=== PATIENT | female | born 1955 | race African-American/Black ===

== ENCOUNTER 2020-05-04 08:02 | Outpatient (CLI) | payer MEDICARE, MEDICAID, SELFPAY ==
--- NOTE | ~2020-05-04 | MM_ITS ---
EXAMINATION: MM screening jaylyn BI w darrel HISTORY: Screening mammogram TECHNIQUE: Craniocaudal and mediolateral oblique 3-D tomosynthesis images were obtained and synthetic 2-D images were generated. CAD analysis was submitted and interpreted. COMPARISON: 07/13/2017 BREAST PARENCHYMAL COMPOSITION: There are scattered areas of fibroglandular density. FINDINGS: There is unchanged architectural distortion in the upper outer left breast at the site of p rior excisional biopsy. There is no evidence of suspicious mass, calcification, or architectural dist ortion to suggest malignancy in either breast. There has been no suspicious interval change. IMPRESSION: 1. No mammographic evidence of malignancy. 2. Recommend routine screening mammography in one year. BI-RADS Category 2: Benign finding(s). Reviewed, dictated and finalized at location A.
== END 2020-05-04 08:03 | disposition home or self-care (01) ==
PROVIDERS: PCP Internal Medicine; Visit Provider Internal Medicine
DX: Z12.31 Encounter for screening mammogram for malignant neoplasm of breast (principal)
CPT/HCPCS: 77063; 77067

== ENCOUNTER → 2020-07-28 07:43 | Outpatient (CLI) | payer MEDICARE, MEDICAID, SELFPAY ==
--- NOTE | ~2020-07-28 | MR_ITS ---
EXAMINATION: MR knee LT wo con DATE: 07/28/2020 08:31 INDICATION: Left knee osteoarthritis. TECHNIQUE: Magnetic resonance imaging (MRI) of the left knee was performed without intravenous contra st. Sequences included axial PD-weighted FS FSE, coronal PD-weighted FSE and PD-weighted FS FSE, sagi ttal PD-weighted FSE, and sagittal T2-weighted FS FSE. COMPARISON: None. FINDINGS: Medial compartment: There is an undersurface horizontal tear of posterior horn of medial meniscus. There is shallow parti al-thickness cartilage loss of tibial condyle, worst at the central and medial articular surface. The re is deep partial thickness cartilage loss of femoral condyle involving the central articular surfac e. There is extensive shallow partial-thickness cartilage loss of femoral condyle. Marginal osteophyt es are noted. Lateral compartment: Lateral meniscus is normal. There is cartilage surface regularity of tibial condyle. There is shallow partial-thickness cartilage loss of femoral condyle. There is subchondral edema-like marrow signal i ntensity of femoral condyle medially. Osteophytes are noted. Patellofemoral compartment: There is full-thickness cartilage loss of patellar medial and lateral facets. There is partial-thickn ess cartilage loss of trochlea, deep at the central trochlea. Osteophytes are noted. Ligaments and tendons: The anterior and posterior cruciate ligaments are normal. Medial collateral ligament and lateral bing ateral ligament complex are intact. There is mild patellar tendinopathy. Fluid: There is a small knee joint effusion. There is a small Voss's cyst. There is mild prepatellar and maya perficial infrapatellar bursitis. IMPRESSION: 1. Severe chondrosis of patellofemoral compartment, moderate chondrosis of medial compartment, and mi ld chondrosis of lateral compartment. 2. Tear of medial meniscus. 3. Small knee joint effusion. 4. Small Voss's cyst. Reviewed, dictated and finalized at location A. IMPRESSION: 1. Severe chondrosis of patellofemoral compartment, moderate chondrosis of medi al compartment, and mild chondrosis of lateral compartment. 2. Tear of medial meniscus. 3. Small knee joint effusion. 4. Small Voss's cyst.
== END ==
PROVIDERS: PCP Internal Medicine; Visit Provider Internal Medicine
DX: M17.12 Unilateral primary osteoarthritis, left knee (principal); M71.22 Synovial cyst of popliteal space [Baker], left knee; M25.462 Effusion, left knee
CPT/HCPCS: 73721

== ENCOUNTER → 2020-08-03 08:52 | Outpatient (CLI) | payer MEDICARE, MEDICAID, SELFPAY ==
--- NOTE | ~2020-08-03 | CT_ITS ---
EXAMINATION: CT lung screening EXAM DATE: 08/03/2020 09:03 INDICATION: Personal history of nicotine dependence. TECHNIQUE: Spiral low dose CT of the chest without contrast. Axial, coronal and sagittal images were reviewed. The dose-length product (DLP) for this examination was 210.84 mGy-cm. The exposure was t ailored according to patient size (auto mA exposure control), and iterative reconstruction (ASIR) was used as additional dose reduction technique. Comparison is made to prior examination from 03/27/2014. FINDINGS: There is moderate emphysema. There is 2 mm right upper lobe nodule, axial image 48. Trach eobronchial tree is patent. There is no mediastinal, hilar or axillary lymphadenopathy. There are no pleural or pericardial effusions. There is no pneumothorax. Heart normal in size. There is mild to moderate coronary arterial calcification, arterial sclerosis. There is atrial septal closure device. There is small to moderate sliding gastroesophageal hiatal hernia. Moderate sized bridging endplate osteophytes, diffuse idiopathic skeletal left breast stenosis. Patient has diffuse idiopathi c skeletal hyperostosis (DISH). IMPRESSION: Lung-RADS category 2, benign appearance or behavior (<1% chance of malignancy); recommend continued LDCT screening in 1 year. Reviewed, dictated and finalized at location B.
== END ==
PROVIDERS: PCP Internal Medicine; Visit Provider Internal Medicine
DX: Z12.2 Encounter for screening for malignant neoplasm of respiratory organs (principal); Z87.891 Personal history of nicotine dependence
CPT/HCPCS: G0297

== ENCOUNTER 2020-11-17 15:33 | Outpatient (CLI) | payer MEDICARE, MEDICAID, SELFPAY ==
--- NOTE | ~2020-11-17 | XR_ITS ---
EXAMINATION: XR chest 2V DATE: 11/17/2020 15:59 INDICATION: Cough and weakness and dizziness. TECHNIQUE: Frontal and lateral views of the chest were obtained. COMPARISON: Chest 2 views 07/13/2018, chest CT 08/03/2020 FINDINGS: There are lucencies in the upper lungs, consistent with emphysema. There are patchy airspac e opacities in the mid and lower lung zones. No pleural effusion or pneumothorax. The heart size is n ormal. There is an interatrial closure device in the heart. There is a moderate-sized hiatal hernia. IMPRESSION: 1. Patchy airspace opacities in the mid and lower lung zones, consistent with pneumonia. Consider may ting for COVID-19. 2. Emphysema. 3. Moderate-sized hiatal hernia. Reviewed, dictated and finalized at location B. 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 Patchy airspace opacities in the mid and lower lung zones, consistent with p neumonia. Consider testing for COVID-19. 2. Emphysema. 3. Moderate-sized hiatal hernia.
== END 2020-11-17 15:34 | disposition home or self-care (01) ==
LOC: ANHIMG 15:40
PROVIDERS: PCP Internal Medicine; Visit Provider Internal Medicine
DX: R05 Cough (principal); J43.9 Emphysema, unspecified; K44.9 Diaphragmatic hernia without obstruction or gangrene; R91.8 Other nonspecific abnormal finding of lung field
CPT/HCPCS: 71046

== ENCOUNTER 2021-02-13 12:45 | Outpatient (CLI) | payer MEDICARE, MEDICAID, SELFPAY ==
--- NOTE | ~2021-02-13 | XR_ITS ---
XR chest 2V DATE: 02/13/2021 13:04 INDICATION: Shortness of breath. Pneumonia. Covid. TECHNIQUE: PA and lateral views COMPARISON: 11/17/2020 2 view chest FINDINGS: Normal heart size. Interatrial closure device is again noted. There is aortic ectasia and u nfolding. No hilar or mediastinal enlargement. No pulmonary infiltrate or consolidation, pleural effusion or pulmonary vascular congestion or pneumo thorax. Degenerative spurring of the thoracic spine. IMPRESSION: Resolution of bilateral mid and lower lung infiltrates since 11/17/2020 Reviewed, dictated and finalized at location A. IMPRESSION: Resolution of bilateral mid and lower lung infiltrates since 021
== END 2021-02-13 12:46 | disposition home or self-care (01) ==
LOC: ANHIMG 12:51
PROVIDERS: PCP Internal Medicine; Visit Provider Internal Medicine
DX: J18.9 Pneumonia, unspecified organism (principal); R91.8 Other nonspecific abnormal finding of lung field
CPT/HCPCS: 71046

== ENCOUNTER 2022-01-13 12:01 | Outpatient (CLI) | payer MEDICARE, MEDICAID, SELFPAY ==
--- NOTE | ~2022-01-13 | MR_ITS ---
EXAMINATION: MR thoracic spine wo con DATE: 01/13/2022 13:05 INDICATION: Abnormal finding on diagnostic imaging. Mid back pain. TECHNIQUE: Magnetic resonance imaging (MRI) of the thoracic spine was performed without intravenous c ontrast. Sagittal localizer T1-weighted FSE of the cervicothoracic spine was obtained. Thoracic spine sequences included sagittal T2-weighted FSE, sagittal T1-weighted SE, Sagittal T2-weighted FS FSE, a nd axial T2-weighted FSE. 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 Normal alignment of the thoracic spine. Vertebral body heights are normal. Normal marrow signal. There are bridging osteo phytes at multiple levels throughout the thoracic spine consistent with diffuse idiopathic skeletal h yperostosis (DISH). Anterior endplate osteophytes with relatively preserved disc space at C5-C6 and C 6-C7. Mild disc height loss at C7-T1, T10-T11 and T12-L1. Mild disc bulge at T11-T12. No central diane l stenosis. There is multilevel mild to moderate thoracic facet osteoarthritis most prominent in the upper thoracic spine. There is mild neural foraminal stenosis bilaterally at T1-T2 and on the left at T10-T11. There is normal spinal cord signal. The conus terminates at L1. Small amount of subcutaneou s edema posterior to the thoracolumbar junction. Paravertebral soft tissues are otherwise unremarkabl e. IMPRESSION: 1. Mild thoracic spondylosis. Reviewed, dictated and finalized at location A.
== END 2022-01-13 12:02 | disposition home or self-care (01) ==
PROVIDERS: PCP Internal Medicine; Visit Provider Internal Medicine
DX: M47.894 Other spondylosis, thoracic region (principal)
CPT/HCPCS: 72146

== ENCOUNTER 2023-08-03 11:40 | Outpatient (CLI) | payer MEDICARE, MEDICAID, SELFPAY ==
--- NOTE | 2023-08-03 13:12 | ECG_ITS ---
Measurements Intervals [place] Rate: 69 P: 56 MT: 155 QRS: 41 QRSD: 98 T: 36 QT: 396 QTc: 425 Interpretive Statements SINUS RHYTHM NO PREVIOUS ECG AVAILABLE FOR COMPARISON Electronically Signed On 08-04-2023 14:08:27 CDT by Bella Zuleta M.D.
[2023-08-03 13:49] LABS: Basophils Percent Auto 0.5 % (0.2-1.2); Eosinophils Absolute Auto 0.2 K/mm3 (0-0.3); Eosinophils Percent Auto 2.7 % (0-4.4); Hematocrit 43.7 % (37.0-47.0); Hemoglobin 13.5 g/dL (12.0-15.0); Immature Granulocyte Absolute 0.04 K/mm3 (0.00-0.031); Immature Granulocyte Percent A 0.5 % (0-0.5); Lymphocytes Percent Auto 26.1 % (18.3-44.2); Mean Corpuscular HGB Conc 30.9 g/dl (32-36); Mean Corpuscular Hemoglobin 25.8 pg (26-34); Mean Corpuscular Volume 83.6 fl (80-100); Mean Platelet Volume 9.7 fl (7.4-10.4); Monocytes Absolute Auto 0.8 K/mm3 (0.1-0.6); Monocytes Percent Auto 10.3 % (2.6-8.5); Neutrophils Absolute Auto 4.6 K/mm3 (1.3-6.7); Neutrophils Percent Auto 59.9 % (45.5-73.1); Platelet Count Result 371 k/mm3 (150-375); Red Blood Count 5.23 M/mm3 (4.2-5.4); Red Cell Distribution Width 16.1 % (11.5-14.5); White Blood Count 7.7 K/mm3 (4.5-10.0)
[2023-08-03 13:57] LABS: Urine Cotinine NEGATIVE
[2023-08-03 13:58] LABS: Albumin Level 4.1 g/dL (3.5-5.1); Anion Gap 5 mmol/L (8-16); Blood Urea Nitrogen 6 mg/dL (7-17); Calcium 9.1 mg/dL (8.4-10.2); Carbon Dioxide 33 mmol/L (22-30); Chloride 101 mmol/L (98-107); Estimated Glomerular Filt Rate > 60; Glucose 100 mg/dL (65-110); Potassium 3.7 mmol/L (3.4-5.0); Sodium 139 mmol/L (137-145)
[2023-08-03 14:02] LABS: Hemoglobin A1C 5.9 % (<5.7)
== END 2023-08-03 11:41 | disposition home or self-care (01) ==
LOC: ANHSURGERY 11:52
PROVIDERS: PCP Internal Medicine; Visit Provider Orthopaedic Surgery
DX: M17.11 Unilateral primary osteoarthritis, right knee (principal); Z01.818 Encounter for other preprocedural examination
CPT/HCPCS: 80048; 80307; 82040; 83036; 85025; 87081; 93005

== ENCOUNTER 2023-08-23 01:44 | Day surgery (SDC) | payer MEDICARE, MEDICAID, SELFPAY ==
[2023-08-03 12:00] VITALS: BMI 38.3
--- NOTE | 2023-08-03 12:22 | PC.NURSE ---
Report to the Outpatient Waiting Room, entrance under the green pavilion located off [facility], at time _1000 on date _08/23/23 . Planned Procedure [id number]: . Time changes happen often and if your time is changed the preop area will call you the afternoon before. - You and your visitor will be asked to self-screen and do not enter if you have any COVID symptoms. - A mask is optional within the hospital at this time. Patients may have clear liquids (water, carbonated beverages, clear teas, apple juice) until 3 hours prior to surgery with a maximum of 20 ounces. - No food from midnight until time of surgery - Infants may have breast milk until 4 hours before surgery, formula 6 hours prior to surgery. - Children will be allowed to drink immediately following surgery. If applicable, please bring a bottle or sippy cup to assist with drinking. Juice, water, soda, and popsicles are readily available. For infants on formula, please bring formula the day of surgery. Pacifiers are allowed. Take the following medications with a SIP of water the morning of surgery: __INHALER, DILTIAZEM DO NOT STOP ANY OF YOUR OTHER PRESCRIPTION MEDICATIONS PRIOR TO SURGERY ?EXCEPT THE FOLLOWING Medications to discontinue per physician __PT STATES HOLD _ASPIRIN _DAY OF SURGERY__ONLY Date to take last dose Please no make-up, nail croatian, hairspray, perfume, deodorant, or body powder the day of surgery. No jewelry (including any body piercings) or valuables the day of surgery, leave them at home. Please take a shower or bath the night before, or the morning of, surgery with an antibacterial soap. Wear comfortable, loose fitting clothing. Children are encouraged to wear pajamas. - Jewelry must be removed prior to entering the operating room. Rings and piercings that are not removed may be cut off. - The hospital will not accept responsibility for valuables. - Please leave all valuables, including medications, at home the day of surgery. If you are going home after surgery, a licensed local hazmat driver must drive you home. - NO public transportation without another adult if you receive anesthesia. - We recommend that an adult stay with you for 24 hours following discharge. - We also recommend that you do not drive, make important decision, drink alcoholic beverages, or take any drugs that were not prescribed by your health care provider for at least 24 hours after your discharge time. For Pediatric surgeries, we recommend two adults accompany the child home. Follow any additional instructions given to you from your surgeon. If you or anyone in your household have experienced Covid symptoms in the past week, please notify your surgeon or the nurse liaison at the phone number below for possible testing. VERBAL AND WRITTEN instructions given to _PATIENT and asked if any additional questions and then verbalized understanding. Patient advised to call surgeon office or pre surgery nurse liaison [phone] if any additional questions.
[2023-08-03 13:03] VITALS: BP 156/92; PULSE 79; RESP 18; TEMP 36.7; O2SAT 98
--- NOTE | 2023-08-21 12:38 | PM.IMHP ---
H&P: HPI History of Present Illness Date/Time: 08/21/23 12:38 Chief Complaint: DJD right knee Narrative: 68-year-old female patient Dr. Paul who presents today for a right total arthroplasty. Patient having symptoms in both her knees right greater than left for several years. She has had cortisone injections as well as viscosupplementation injections in the knees. Her last cortisone injection was March 30 of this year. She got minimal improvement from the injection. She has severe medial compartment osteoarthritis in both knees. Patient has reached a point where she feels she would rather proceed with total knee arthroplasty rather than continue nonsurgical treatment. Review of Systems Review of Systems: All systems reviewed & are unremarkable except as noted in HPI and below PMFSH Social History Social History Smoking packs per day: 0.5 Smoking cigarettes per day: 10.0 Years smoked: 40 Smoking pack-years: 20.00 Smoking status: Former smoker Tobacco type: cigarettes Smoking end date: 10/30/10 Additional smoking assessment comments: DENIES ANY FORM OF TOBACCO USE Living arrangements: alone Spiritual care concerns: No Meds Home Medications and Allergies Home Medications Medication Instructions Recorded Confirmed Type albuterol sulfate 90 mcg/actuation 2 puff inhalation PRN PRN 08/03/23 08/03/23 History aerosol inhaler Shortness Of Breath aspirin 81 mg tablet,delayed 81 mg PO DAILY 08/03/23 08/03/23 History release (Adult Low Dose Aspirin) budesonide 160 mcg-glycopyr 9 2 inh inhalation BID 08/03/23 08/03/23 History mcg-formot 4.8 mcg/actuation HFA inhaler (Breztri Aerosphere) diltiazem HCl 120 mg tablet 120 mg PO DAILY 08/03/23 08/03/23 History lidocaine 1.8 % topical patch 1 patch topical PRN PRN Pain 08/03/23 08/03/23 History pantoprazole 40 mg tablet,delayed 40 mg PO DAILY 08/03/23 08/03/23 History release Allergies Allergy/AdvReac Type Severity Reaction Status Date / Time codeine Allergy Mild Hives Verified 08/03/23 12:02 meperidine Allergy Unknown VOMITING Verified 08/03/23 12:02 Penicillins Allergy Unknown Hives Verified 08/03/23 12:02 Sulfa (Sulfonamide Allergy Unknown RASH Verified 08/03/23 12:02 Antibiotics) aspirin AdvReac Unknown Unknown Verified 08/03/23 12:02 Contrast Media Allergy Severe Anaphylactic Uncoded 08/03/23 12:02 Shock Exam Narrative: 68-year-old female alert. She is 5 ft 4 and 232 lb her BMI is 39.8. She walks with a mild limp bilaterally. Right knee range of motion is from 3-90 degrees with significant posterior and medial knee pain at full flexion. Moderate tenderness over the medial joint line. No definite effusion. Normal stability in the knee. Hip range of motion is full without discomfort, negative Stinchfield maneuver. 2+ posterior artery pulse palpable no dorsalis pedis pulse. There is no edema in lower extremity. Normal sensation light touch to lower extremities Resp: Auscultation: clear to auscultation bilaterally Cardio: Rate: regular rate Rhythm: regular rhythm Assessment and Plan Assessment and plan (1) Right knee DJD: Code(s): M17.11 - Unilateral primary osteoarthritis, right knee Status: Acute Plan 68-year-old female who has severe medial compartment osteoarthritis both knees with the right more symptomatic than left at this point. She feels she is ready to proceed with surgery rather than continue with nonsurgical treatment. Surgical procedure as well as the risks and complications were discussed in detail and all questions were answered and we will proceed. Patient will continue with her baby aspirin through the time of surgery due to her history of heart stent. She will avoid any ibuprofen products 1 week prior to surgery. Patient will see her primary care doctor for medical clearance. She has seen cardiology and has been cleared. Patient did have a stress test done in [place]
--- NOTE | 2023-08-22 13:00 | WPDANESEPPF ---
Anes - Initial Pre Proc Eval Procedure: Operation Date: 08/23/23 12:00 Proposed Procedures p Right Total Knee Arthroplasty - Jero Seay MD Date/Time: 08/22/23 13:00 Surgeon: Jero Seay MD Pre Op Diagnosis: O A Rt Knee Patient Data Age: 68 Gender: F Height: 1.65 m Weight: 104.6 kg Last Vital Signs Temp 36.7 C 08/03/23 13:03 Pulse 79 08/03/23 13:03 Resp 18 08/03/23 13:03 BP 156/92 H 08/03/23 13:03 Pulse Ox 98 08/03/23 13:03 O2 Del Method Room Air 08/03/23 13:03 Allergies Allergy/AdvReac Type Severity Reaction Status Date / Time codeine Allergy Mild Hives Verified 08/23/23 10:53 meperidine Allergy Unknown VOMITING Verified 08/23/23 10:53 Penicillins Allergy Unknown Hives Verified 08/23/23 10:53 Sulfa (Sulfonamide Allergy Unknown RASH Verified 08/23/23 10:53 Antibiotics) aspirin AdvReac Unknown Unknown Verified 08/23/23 10:53 Contrast Media Allergy Severe Anaphylactic Uncoded 08/23/23 10:53 Shock Home Medications Medication Instructions Recorded Confirmed Type albuterol sulfate 90 mcg/actuation 2 puff inhalation PRN PRN 08/03/23 08/03/23 History aerosol inhaler Shortness Of Breath aspirin 81 mg tablet,delayed 81 mg PO DAILY 08/03/23 08/03/23 History release (Adult Low Dose Aspirin) budesonide 160 mcg-glycopyr 9 2 inh inhalation BID 08/03/23 08/03/23 History mcg-formot 4.8 mcg/actuation HFA inhaler (Breztri Aerosphere) diltiazem HCl 120 mg tablet 120 mg PO DAILY 08/03/23 08/03/23 History lidocaine 1.8 % topical patch 1 patch topical PRN PRN Pain 08/03/23 08/03/23 History pantoprazole 40 mg tablet,delayed 40 mg PO DAILY 08/03/23 08/03/23 History release Patient hx anesthesia problems: none Family hx anesthesia problems: none Results Review: All pre-operative results and documents have been reviewed as part of the pre-operative evaluation. [facility] Past Medical History Medical History (Updated 08/22/23 @ 13:02 by Corbin Reed DO) CVA (cerebral vascular accident) 2017 , some memory loss Emphysema lung Leukemia at 6 months of age Polycythemia vera Surgical History Surgical History (Updated 08/22/23 @ 13:02 by Corbin Reed DO) History of coronary artery stent placement x1 History of hysterectomy Social History Social History Smoking packs per day: 0.5 Smoking cigarettes per day: 10.0 Years smoked: 40 Smoking pack-years: 20.00 Smoking status: Former smoker Tobacco type: cigarettes Smoking end date: 10/30/10 Additional smoking assessment comments: DENIES ANY FORM OF TOBACCO USE Living arrangements: alone Spiritual care concerns: No Anes - Eval Final PreProcedure Day of Procedure 08/22/23 13:00 Patient weight: obese Heart: regular rate and rhythm Lungs: clear to auscultation Airway: Mallampati scale class II Neurological: alert and oriented Last oral intake: >/= 8 hours ASA classification: III Emergent: no Anesthetic plan: proceed Anesthesia type and monitoring: general LMA and standard monitoring Results Review: All pre-operative results and documents have been reviewed as part of the pre-operative evaluation. Informed Consent: The patient's anesthetic plan and its attendant risks and benefits were discussed with the patient/family/POA. Questions were solicited and answers provided to the satisfaction of the patient/family/POA.
[2023-08-23] VITALS (14 sets, daily range): BP systolic 112–161; BP diastolic 69–94; PULSE 68–88; RESP 12–18; TEMP 35.7–36.4; O2SAT 96–100
--- NOTE | ~2023-08-23 | XR_ITS ---
EXAMINATION: [id number] DATE: 08/23/2023 16:16 CDT INDICATION: Right total knee arthroplasty TECHNIQUE: 2 views right knee FINDINGS: There is a right total knee arthroplasty in expected position. Subcutaneous gas with fluid and air in the joint are consistent with recent surgery. No evidence of periprosthetic fracture. IMPRESSION: 1. Recent right total knee arthroplasty. Reviewed, dictated and finalized at location B.
[2023-08-23] MEDS: LACTATED RINGERS 1,000 ML 30 ML IV CONT ×2 (10:50→15:42)
[2023-08-23] MEDS: ACETAMINOPHEN 500 MG TABLET 1000 MG PO ×2 (10:50→18:22)
[2023-08-23] MEDS: TRANEXAMIC ACID 1,000MG/ISO100 1,000 MG/100 ML BAG 200 MG IVPB (11:30)
--- NOTE | 2023-08-23 12:03 | WPDHPUPDATE1 ---
History and Physical Update Update Date/Time: 08/23/23 12:03 History and Physical has been reviewed, including an updated exam of the patient. There are NO changes in the patient's condition. Risks, benefits, and alternatives have been discussed and questions answered. Patient agrees to proceed with procedure.
--- NOTE | 2023-08-23 12:05 | WPDHPUPDATE1 ---
History and Physical Update Update Date/Time: 08/23/23 12:05 History and Physical has been reviewed, including an updated exam of the patient. There are NO changes in the patient's condition. Risks, benefits, and alternatives have been discussed and questions answered. Patient agrees to proceed with procedure. Also, patient has OA in left knee and would like a shot in left knee today.
[2023-08-23] MEDS: ceFAZolin 2 GM/D5W 50 ML 2 GM/50 ML BAG IVPB (12:19)
[2023-08-23] MEDS: ceFAZolin SODIUM 1 GM VIAL 3 GM (13:10)
[2023-08-23] MEDS: GENTAMICIN BONE CEMENT REFOBACIN 1 EACH TOPICAL (13:13)
[2023-08-23] MEDS: methylPREDNISolone ACETATE 80 MG/ML VIAL IM (13:15)
[2023-08-23] MEDS: ceFAZolin SODIUM 1 GM VIAL 2 GM IV PUSH (14:32)
[2023-08-23] MEDS: TRANEXAMIC ACID 1,000 MG/10 ML AMPUL 1000 MG IV PUSH (14:35)
--- NOTE | 2023-08-23 15:26 | W.PM.PROC2 ---
Procedure Note - Detailed Date of Procedure 08/23/23 Pre-op Diagnosis O A Rt Knee and Lt knee, obesity BMI 39. Post-op Diagnosis Same Procedure Performed Right total knee arthroplasty, cortisone shot left knee Surgeon Jero Seay MD Anesthesia General Description of Procedure There was extra difficulty with the procedure because of her obesity which added approximately 30 minutes of surgical time to the procedure. Patient brought the operating room and general anesthesia was administered. She received 2 g of Ancef weight based vancomycin 1 g tranexamic acid preoperatively. The left knee was prepped with ChloraPrep and 80 mg of Depo-Medrol and 3 cc 1% lidocaine injected. The right leg was prepped draped usual fashion. Limb was exsanguinated tourniquet elevated to 300 mmHg. A 7 in longitudinal midline incision was used and a standard parapatellar arthrotomy lysed. Infrapatellar and suprapatellar fat pads were partially excised a quadriceps synovectomy carried out. The patella had chondromalacia central in the medial facet no exposed bone or bony deformity lateral sec cartilage was normal. I felt this was appropriate for non resurfacing. A minor lateral facetectomy was performed. A guide sharon was inserted down the femoral canal after aspiration of canal contents using the 5 degree valgus cutting bushing 10 mm of bone removed the distal femur. The tibial plateau was cut using making a skim cut from [place] medial tibial plateau. This was made perpendicular to the axis of the tibia. This could remnants were excised the PCL recessed. Flexion gap measured 8 mm medially 13 mm laterally. We did not release the medial capsule from the tibia because she did not have a significant varus deformity. Careful removal of the small medial osteophyte on the anteromedial tibial was performed. Femoral sizing guide was applied the distal femur at 5? of external rotation and posterior referencing pinholes placed and we applied the size 65 femoral cutting block vanguard and AP and chamfer cuts were made in the size 65 fit nicely line to line medial to lateral and flush with the anterior cortex. We were a bit tight medially more than laterally in flexion. The knee was just short of extension. The tibia was sized to a size 71 and with the tibial tray in place I felt we were in just a touch of valgus and with the knee being tight in flexion, I elected to recut the tibial plateau removing about 2 mm of bone from the medial side 1 mm from the lateral side. We confirmed that the trial sat flush with no rocking. We punched in this position which fit line to line posterolateral to anteromedial at proper rotation and trialed with the 10 mm insert and this had appropriate stability in flexion extension and came out to full extension with negative bounce with 1-2 mm of both medial and lateral opening valgus and varus stress in full extension. Trial components removed and the trial femur placed in posterior femoral osteophyte removed the medial side. We did not perform a posterior capsular release. Lug holes were drilled femur. Step drill was used to make multiple perforations in the dense bone. Her bone quality was excellent. The bony surfaces were thoroughly irrigated and dried. Two batches of methylmethacrylate were mixed 1 the gentamicin powder the cement was medial applied the 71 tibia and then the 65 right cruciate retaining femoral component cement applied the tibia pressurized tibial component fully seated cement applied the femur the femoral component fully seated the knee brought into extension with an 11 mm 5 1 insert for pressurization tourniquet was released at 105 minutes. After cement hardening excess cement was sought for removed and hemostasis was confirmed. We trialed with the 10 insert and the same stability findings mentioned above. The 10 was placed without difficulty locked the locking pin range of motion stability reconfirmed there was centr
[2023-08-23] MEDS: fentaNYL CITRATE INJ (*CRX) 100 MCG/2 ML VIAL 25 MCG IV PUSH ×8 (15:50→16:20)
[2023-08-23] MEDS: HYDROmorphone HCL INJ (*CRX) 1 MG/ML SYR 0.5 MG IV PUSH (17:09)
--- NOTE | 2023-08-23 17:36 | ADMGEN ---
This patient, Alfreda Alan, was admitted to [facility] Surg Room 325-01. Patient/family oriented to hospital policies and general routines including ID bracelet, bed and alarms, visiting hours, pain management, procedures, bathroom and other care routines, personal items, smoking policy, room service/diet, and visiting hours. Information on how to activate the Rapid Response Team has been discussed. Patient/Family are encouraged to report perceived risks to care and to ask questions if they do not understand what they are told or what they should do.
[2023-08-23] MEDS: oxyCODONE HCL (*CRX) 5 MG TAB IR PO ×3 (18:22→22:27)
[2023-08-23] MEDS: SENNA/DOCUSATE SODIUM TABLET 2 TAB PO (18:22)
[2023-08-23] MEDS: ONDANSETRON INJ 4 MG/2 ML VIAL IV PUSH (18:39)
[2023-08-23] MEDS: ceFAZolin 1 GM/NS 50 ML 1 GM/50 ML BAG IVPB (20:34)
--- NOTE | 2023-08-23 20:49 | PM.IMCN ---
Assessment and Plan Assessment and plan (1) S/P total knee arthroplasty: Qualifiers: Laterality: right Qualified Code(s): Z96.651 - Presence of right artificial knee joint Code(s): Z96.659 - Presence of unspecified artificial knee joint Status: Acute (2) Coronary artery disease: Qualifiers: Coronary Disease-Associated Artery/Lesion type: unspecified vessel or lesion type [place] vs. transplanted heart: [place] heart Associated angina: unspecified whether angina present Qualified Code(s): I25.10 - Atherosclerotic heart disease of [place] coronary artery without angina pectoris Code(s): I25.10 - Atherosclerotic heart disease of [place] coronary artery without angina pectoris Status: Acute (3) GERD (gastroesophageal reflux disease): Qualifiers: Esophagitis presence: esophagitis presence not specified Qualified Code(s): K21.9 - Gastro-esophageal reflux disease without esophagitis Code(s): K21.9 - Gastro-esophageal reflux disease without esophagitis Status: Acute Plan Problem List 1. Status post total knee arthroplasty, right Ortho managing ambulate with assistance and up to chair cardiac monitoring use IS SCDs resume diet pain management zofran PRN for nausea monitor labs in AM - CBC and BMP Lidocaine patch p.r.n. 2. CAD Hold daily aspirin due to recent surgery, resume at orthopedic team's discretion Continue diltiazem Monitor heart rate and BP Tele monitoring 3. GERD Continue home pantoprazole Chronic Conditions -emphysema/COPD: Continue albuterol p.r.n. and Trelegy daily Diet: Heart healthy GI Prophylaxis: Home pantoprazole continued DVT Prophylaxis: SCDs, restart Eliquis on 08/24 Lines: pIV Code Status: DNR/DNI - per patient request on 08/23/2023 HPI Date of Consult Consult date: 08/24/23 Requesting Physician: Jero Seay MD Primary Care Provider: Vu Paul, Consult Narrative Reason for consult: Med Management Narrative: Alfreda Alan is a 68 year old female who presented here for a right knee total arthroplasty with past medical history of COPD, CAD with 1 stent placed, and GERD. Patient is currently postop day 1 from right total knee. Patient failed nonsurgical treatment: Cortisone injections and viscosupplementation injection. Patient has had bilateral knee pain for the last several years, however right has been worse than her left. Currently experiencing some postoperative pain. Brief episode of nausea after leaving PACU. Otherwise no complaints. No changes in sensation or strength in lower extremities. Review of Systems Review of Systems: All systems reviewed & are unremarkable except as noted in HPI and below PMFSH Past Medical History Medical History (Updated 08/24/23 @ 02:21 by Amanda Burris APRN) Coronary artery disease CVA (cerebral vascular accident) 2017 , some memory loss Emphysema lung GERD (gastroesophageal reflux disease) Leukemia at 6 months of age Polycythemia vera Surgical History Surgical History (Updated 08/24/23 @ 02:13 by Amanda Burris APRN) History of coronary artery stent placement x1 History of hysterectomy Family History Family History (Updated 08/24/23 @ 02:11 by Amanda Burris APRN) Sibling Ovarian cancer Mother Cancer Metastatic, unknown primary source Social History Social History (Updated 08/24/23 @ 02:11 by Amanda Burris APRN) Social History: Currently lives at home with her , son occasionally stays with them. Surrogate decision maker: Randal, Requesting to be made DNR/DNI -08/24/2023 Smoking packs per day: 0.5 Smoking cigarettes per day: 10.0 Years smoked: 40 Smoking pack-years: 20.00 Smoking status: Former smoker Additional smoking assessment comments: DENIES ANY FORM OF TOBACCO USE Alcohol intake: current Drinks per week: 3 Substance use: current S
[2023-08-23] MEDS: VANCOMYCIN 1,000 MG/NS 250 ML 1,000 MG/250 ML BAG 250 MG IVPB (21:56)
[2023-08-24] VITALS (7 sets, daily range): BP systolic 82–109; BP diastolic 39–62; PULSE 77–96; RESP 16–20; TEMP 35.8–36.2; O2SAT 94–98
[2023-08-24] MEDS: oxyCODONE HCL (*CRX) 5 MG TAB IR PO ×4 (00:50→08:59)
[2023-08-24] MEDS: ACETAMINOPHEN 500 MG TABLET 1000 MG PO ×3 (00:50→12:28)
[2023-08-24] MEDS: MORPHINE SULFATE (*CRX) 2 MG/ML INJ IV PUSH (02:01)
[2023-08-24] MEDS: ceFAZolin 1 GM/NS 50 ML 1 GM/50 ML BAG IVPB ×2 (04:07→12:31)
[2023-08-24 06:22] LABS: Basophils Percent Auto 0.1 % (0.2-1.2); Hematocrit 38.9 % (37.0-47.0); Hemoglobin 12.3 g/dL (12.0-15.0); Immature Granulocyte Absolute 0.19 K/mm3 (0.00-0.031); Immature Granulocyte Percent A 0.9 % (0-0.5); Lymphocytes Absolute Auto 1.38 K/mm3 (0.9-3.2); Lymphocytes Percent Auto 6.5 % (18.3-44.2); Mean Corpuscular HGB Conc 31.6 g/dl (32-36); Mean Corpuscular Hemoglobin 26.3 pg (26-34); Mean Corpuscular Volume 83.1 fl (80-100); Mean Platelet Volume 9.8 fl (7.4-10.4); Monocytes Absolute Auto 1.6 K/mm3 (0.1-0.6); Monocytes Percent Auto 7.3 % (2.6-8.5); Neutrophils Absolute Auto 18.2 K/mm3 (1.3-6.7); Neutrophils Percent Auto 85.2 % (45.5-73.1); Platelet Count Result 379 k/mm3 (150-375); Red Blood Count 4.68 M/mm3 (4.2-5.4); Red Cell Distribution Width 16.1 % (11.5-14.5); White Blood Count 21.4 K/mm3 (4.5-10.0)
[2023-08-24 06:34] LABS: Anion Gap 8 mmol/L (8-16); Blood Urea Nitrogen 7 mg/dL (7-17); Calcium 8.5 mg/dL (8.4-10.2); Carbon Dioxide 25 mmol/L (22-30); Chloride 101 mmol/L (98-107); Estimated CRCL calculation 106 ml/min; Estimated Glomerular Filt Rate > 60; Glucose 178 mg/dL (65-110); Potassium 3.8 mmol/L (3.4-5.0); Sodium 134 mmol/L (137-145)
--- NOTE | 2023-08-24 07:09 | PM.PNORT ---
Subjective Subjective Date/Time Seen: 08/24/23 07:09 Interval history: Postop day 1 Patient is alert. She has been afebrile vital signs are stable. dressing is dry and intact. Pain is well controlled she has been to the restroom overnight. Patient is doing well. Chem panel has been completed with only a slight bump glucose. The rest of Chem panel was normal. CBC is pending. overall patient is doing well Eliquis this morning. The plan will be to have the patient work with therapy this morning and again this afternoon been completed and she continued be discharged to home. Objective Data Vital Signs Vital Signs: Vital Signs - 24 hr 08/23/23 10:45 08/23/23 15:42 08/23/23 15:57 Temperature 36.4 C L 36.2 C L Pulse Rate 68 88 86 Respiratory Rate 14 14 12 Blood Pressure 149/70 H 150/81 H 156/86 H Pulse Oximetry 99 100 100 Oxygen Delivery Room Air Simple Face Mask Simple Face Mask Oxygen Flow Rate 8 8 08/23/23 16:12 08/23/23 16:27 08/23/23 16:42 Temperature Pulse Rate 87 88 81 Respiratory Rate 14 12 12 Blood Pressure 159/94 H 161/83 H 159/88 H Pulse Oximetry 99 99 99 Oxygen Delivery Nasal Cannula Nasal Cannula Room Air Oxygen Flow Rate 3 3 08/23/23 16:57 08/23/23 18:05 08/23/23 17:17 Temperature 36.4 C Pulse Rate 80 83 Respiratory Rate 16 16 Blood Pressure 139/77 142/94 H Pulse Oximetry 99 99 99 Oxygen Delivery Room Air Nasal Cannula Oxygen Flow Rate 2 08/23/23 17:32 08/23/23 18:02 08/23/23 19:02 Temperature 36.0 C L 35.8 C L 35.7 C L Pulse Rate 80 74 79 Respiratory Rate 16 16 16 Blood Pressure 151/84 H 138/82 125/76 Pulse Oximetry 100 98 97 Oxygen Delivery Oxygen Flow Rate 08/23/23 23:02 08/23/23 20:00 08/24/23 00:00 Temperature 35.9 C L Pulse Rate 78 79 79 Respiratory Rate 18 Blood Pressure 112/69 Pulse Oximetry 96 Oxygen Delivery Oxygen Flow Rate 08/24/23 04:00 08/24/23 03:02 Temperature 35.8 C L Pulse Rate 83 78 Respiratory Rate 20 Blood Pressure 109/60 Pulse Oximetry 94 Oxygen Delivery Oxygen Flow Rate Intake/Output Intake/Output: Intake & Output 08/21/23 08/22/23 08/23/23 08/24/23 23:59 23:59 23:59 23:59 Intake Total 2200 550 Balance 2200 550 Meds/Results Medications: Active Medications Generic Name Dose Route Start Last Admin Trade Name Freq PRN Reason Stop Dose Admin Acetaminophen 1,000 mg 08/23/23 18:00 08/24/23 06:06 Acetaminophen 500 Mg Tablet PO 1,000 mg Q6H VON Administration Albuterol 2 puff 08/23/23 17:17 Albuterol Sulfate (*Sp) Aerosol 1 Puff INHALATION PRN PRN Shortness Of Breath Apixaban 2.5 mg 08/24/23 09:00 Apixaban 2.5 Mg Tablet PO Q12HR VON Aspirin 81 mg 08/24/23 08:00 Aspirin 81 Mg Chewable Tablet PO DAILY@0800 [facility] Diltiazem HCl 120 mg 08/24/23 09:00 Diltiazem Hcl 60 Mg Tablet PO DAILY VON Fluticasone/Umeclidinium/Vilanterol 1 puff 08/24/23 09:00 Fluticasone/Umeclidin/Vilanter 100-62.5-25 Mcg Ellipta INHALATION DAILY [facility] Cefazolin Sodium 1 gm in 50 mls @ 100 mls/hr 08/23/23 20:00 08/24/23 04:37 Ancef 1 Gm/Ns 50 Ml IVPB 08/24/23 12:29 Infused Q8H VON Infusion Vancomycin HCl 1,000 mg in 250 mls @ 250 mls/hr 08/23/23 22:00 08/23/23 22:56 Vancomycin 1,000 Mg/Ns 250 Ml IVPB 08/24/23 10:59 Infused Q12H VON Infusion Miscellaneous Information 1 each 08/24/23 00:01 Med Rec Order Clarification XX 09/23/23 00:00 CLARIFY VON Morphine Sulfate 2 mg 08/23/23 17:17 08/24/23 02:01 Morphine Sulfate (*Crx) 2 Mg/Ml Inj IV PUSH 2 mg Q1H PRN Administration Pain Rated 7-10 Naloxone HCl 0.1 mg 08/23/23 17:17 Naloxone Hcl 0.4 Mg/Ml Vial IV PUSH Q2M PRN Opiate Reversal Non-Formulary Medication 1 patch 08/23/23 17:17 Lidocaine TOPICAL PRN PRN Pain Ondansetron HCl 4 mg 08/24/23 02:15 Ondansetron Inj 4 Mg/2 Ml Vial IV PUSH Q6H PRN Hayden
--- NOTE | 2023-08-24 07:15 | PM.DS ---
DS: Admitting Diagnosis Discharge Date 08/24 Admitting Diagnosis right knee DJD DS: Discharge Diagnosis Discharge Diagnosis (1) S/P total knee arthroplasty: Qualifiers: Laterality: right Qualified Code(s): Z96.651 - Presence of right artificial knee joint Code(s): Z96.659 - Presence of unspecified artificial knee joint Status: Acute DS: Summary Hospital Course Hospital Course: 68-year-old female underwent right total arthroplasty on 08/23. Underwent the procedure without complications. Postoperatively she has been afebrile vital signs are stable. She has been on cardiac rehabilitation specialist postoperatively without any changes. She is weight-bearing as tolerated she is on Eliquis for DVT prophylaxis. She is still as well as Tylenol for pain control which is working well for her. She has been on her baby aspirin to the time surgery so overnight using Eliquis initially on her postop. The day of surgery she was up to the restroom several times overnight. Morning of postop day 1 she was alert comfortable having only mild discomfort in the knee. Dressing was dry and intact. Neurovascularly she was intact patient be discharged home on 08/24 once IV antibiotics have been completed. She go home with a 10 day course of Omnicef. She II week course of Eliquis. She will be on Tylenol and oxycodone 5 mg for pain control. She will also go home on Senokot and MiraLax for constipation. Patient was advised to keep the leg elevated at home to prevent swelling. She is to do her exercises up bending and straightening the knee every hour while awake. Patient is outpatient therapy starting next week. She was advised any questions or concerns she is to call the office. Time Spent with Patient Time attestation: Total time spent providing and/or coordinating discharge services: DS: Data Data Completed and Pending Labs on day of discharge: Labs from last 24 hours 08/24/23 08/23/23 06:08 10:33 WBC 21.4 H RBC 4.68 Hgb 12.3 Hct 38.9 MCV 83.1 MCH 26.3 MCHC 31.6 L RDW 16.1 H Plt Count 379 H MPV 9.8 Immature Gran % (Auto) 0.9 H Neut % (Auto) 85.2 H Lymph % (Auto) 6.5 L [place] % (Auto) 7.3 Eos % (Auto) 0.0 Baso % (Auto) 0.1 L Lymph # (Auto) 1.38 [place] # (Auto) 1.6 H Eos # (Auto) 0.0 Baso # (Auto) 0.0 Abs Immat Gran (auto) 0.19 H Absolute Neuts (auto) 18.2 H Absolute Nucleated RBC 0.0 Nucleated RBC % 0.0 Sodium 134 L Potassium 3.8 Chloride 101 Carbon Dioxide 25 Anion Gap 8 BUN 7 Creatinine 0.50 L Estim Creat Clear Calc 106 Estimated GFR > 60 Glucose 178 H Calcium 8.5 Blood Type B Positive Antibody Screen Negative Discharge Plan Discharge Patient Disposition: Home, Self-Care Discharge Instructions: JONATHON YBARRA M.D [facility], [place] [id number] [place] [id number] POST-OPERATIVE DISCHARGE INSTRUCTIONS TOTAL KNEE ARTHROPLASTY 1. When resting, lie on back with leg elevated above heart to minimize swelling. Significant swelling could indicate a blood clot and if this occurs call the office (or go to the ER) to have a venous ultrasound. 2. Do exercise 5 times a day. 3. Do not sit with leg down except for meals. 4. Wound Care: Nursing will give additional dressings at discharge. Patient to change dressing at home 1 week from surgery, then maintain until seen in office. 5. May shower with dressing in place. 6. Follow weight bearing status instructions. IMPORTANT: Remember not to sit in the chair for more than 30 minutes at a time. As a rule, during the first 14 days after surgery, only sit in the chair to work on the chair knee bending stretch exercise, for meals or for use of the restroom. Sitting in the chair promotes significant swelling in the knee and leg which will make the knee stiff and more painful and which simulates having a blood clot in the veins of
[2023-08-24] MEDS: SENNA/DOCUSATE SODIUM TABLET 2 TAB PO (08:45)
[2023-08-24] MEDS: polyethylene glycoL 3350 17 GM POWD.PACK PO (08:46)
[2023-08-24] MEDS: ASPIRIN 81 MG CHEWABLE TABLET PO (08:47)
[2023-08-24] MEDS: dilTIAZem HCL 60 MG TABLET 120 MG PO (08:47)
[2023-08-24] MEDS: APIXABAN 2.5 MG TABLET PO (08:48)
[2023-08-24] MEDS: ONDANSETRON INJ 4 MG/2 ML VIAL IV PUSH (08:48)
[2023-08-24] MEDS: PANTOPRAZOLE 40 MG TABLET PO (08:48)
[2023-08-24] MEDS: FLUTICASONE/UMECLIDIN/VILANTER 100-62.5-25 MCG ELLIPTA 1 PUFF INHALATION (10:09)
--- NOTE | 2023-08-24 10:13 | P.PNAN_ITS ---
Anes - Prog Note Post-Op Date/Time: 08/24/23 10:13 Cardiovascular status: normal Respiratory status: normal Airway patency: baseline Mental status: baseline Post-Op hydration status: normal Vital Signs: Last Vital Signs Temp 96.7 F L 08/24/23 07:02 Pulse 84 08/24/23 07:02 Resp 16 08/24/23 07:02 BP 82/39 L 08/24/23 07:02 Pulse Ox 98 08/24/23 07:02 O2 Del Method Room Air 08/24/23 08:27 O2 Flow Rate 2 08/23/23 18:05 Pain Score (VAS): 8 I/O: Intake & Output 08/23/23 08/24/23 08/24/23 23:59 07:59 15:59 Intake Total 550 550 240 Balance 550 550 240 Laboratory Tests 08/24/23 06:08 08/24/23 06:08 08/23/23 08/24/23 10:33 06:08 WBC 21.4 H RBC 4.68 Hgb 12.3 Hct 38.9 MCV 83.1 MCH 26.3 MCHC 31.6 L RDW 16.1 H Plt Count 379 H MPV 9.8 Immature Gran % (Auto) 0.9 H Neut % (Auto) 85.2 H Lymph % (Auto) 6.5 L [place] % (Auto) 7.3 Eos % (Auto) 0.0 Baso % (Auto) 0.1 L Lymph # (Auto) 1.38 [place] # (Auto) 1.6 H Eos # (Auto) 0.0 Baso # (Auto) 0.0 Abs Immat Gran (auto) 0.19 H Absolute Neuts (auto) 18.2 H Absolute Nucleated RBC 0.0 Nucleated RBC % 0.0 Sodium 134 L Potassium 3.8 Chloride 101 Carbon Dioxide 25 Anion Gap 8 BUN 7 Creatinine 0.50 L Estim Creat Clear Calc 106 Estimated GFR > 60 Glucose 178 H Calcium 8.5 Blood Type B Positive Antibody Screen Negative Post-procedural complaints: nausea Patient Feedback: Patient satisfied with anesthetic care.
[2023-08-24] MEDS: VANCOMYCIN 1,000 MG/NS 250 ML 1,000 MG/250 ML BAG 250 MG IVPB (10:34)
--- NOTE | 2023-08-24 12:52 | PM.IMPN ---
Progress Note: A&P Assessment and Plan (1) S/P total knee arthroplasty: Qualifiers: Laterality: right Qualified Code(s): Z96.651 - Presence of right artificial knee joint Code(s): Z96.659 - Presence of unspecified artificial knee joint Status: Acute (2) Coronary artery disease: Qualifiers: Coronary Disease-Associated Artery/Lesion type: unspecified vessel or lesion type [place] vs. transplanted heart: [place] heart Associated angina: unspecified whether angina present Qualified Code(s): I25.10 - Atherosclerotic heart disease of [place] coronary artery without angina pectoris Code(s): I25.10 - Atherosclerotic heart disease of [place] coronary artery without angina pectoris Status: Acute (3) GERD (gastroesophageal reflux disease): Qualifiers: Esophagitis presence: esophagitis presence not specified Qualified Code(s): K21.9 - Gastro-esophageal reflux disease without esophagitis Code(s): K21.9 - Gastro-esophageal reflux disease without esophagitis Status: Acute Plan Problem List 1. Status post total knee arthroplasty, right Ortho managing, okay to d/c today ambulate with assistance and up to chair cardiac monitoring use IS SCDs while inpatient resume diet pain management zofran PRN for nausea labs stable 2. CAD Hold daily aspirin due to recent surgery, resume at orthopedic team's discretion Continue diltiazem Monitor heart rate and BP Tele monitoring 3. GERD Continue home pantoprazole Chronic Conditions -emphysema/COPD: Continue albuterol p.r.n. and Trelegy daily Diet: Heart healthy GI Prophylaxis: Home pantoprazole continued DVT Prophylaxis: SCDs, restart Eliquis on 08/24 Lines: pIV Code Status: DNR/DNI - per patient request on 08/23/2023 Subjective Date/time seen: 08/24/23 12:52 Interval history: Patient is awake and A&O at bedside today. She reports some pain in her right knee, but it is controlled with pain medication. PT had seen her already this morning and will be seeing her again prior to discharge. She denies any other concerns. She has been afebrile, VSS. Her dressing is dry and intact. Review of Systems Review of Systems: All systems reviewed & are unremarkable except as noted in HPI and below Exam Const: General: comfortable and no acute distress HENMT: Mouth: Yes moist mucous membranes Eyes: General: appearance normal, both eyes and all related structures Sclera: sclerae normal Pupils: Equal, round and reactive pupils present EOM: EOMs intact bilaterally Neck: Neck: supple Thyroid: thyroid normal Resp: Effort & Inspection: normal respiratory effort Auscultation: clear to auscultation bilaterally Cardio: Rate: regular rate Rhythm: regular rhythm GI: GI Palp: Yes Soft to palpation Auscultation: normal bowel sounds Skin: Wounds: wounds noted Other: dressing intact on right knee Neuro: Speech: normal speech Sensory Exam: normal sensation Psych: Mental Status: mental status grossly normal Affect: normal affect Objective Data Vital Signs Vital Signs: Vital Signs - 24 hr 08/23/23 15:42 08/23/23 15:57 08/23/23 16:12 Temperature 97.2 F L Pulse Rate 88 86 87 Respiratory Rate 14 12 14 Blood Pressure 150/81 H 156/86 H 159/94 H Pulse Oximetry 100 100 99 Oxygen Delivery Simple Face Mask Simple Face Mask Nasal Cannula Oxygen Flow Rate 8 8 3 08/23/23 16:27 08/23/23 16:42 08/23/23 16:57 Temperature Pulse Rate 88 81 80 Respiratory Rate 12 12 16 Blood Pressure 161/83 H 159/88 H 139/77 Pulse Oximetry 99 99 99 Oxygen Delivery Nasal Cannula Room Air Room Air Oxygen Flow Rate 3 08/23/23 18:05 08/23/23 17:17 08/23/23 17:32 Temperature 97.6 F 96.8 F L Pulse Rate 83 80 Respiratory Rate 16 16 Blood Pressure 142/94 H 151/84 H Pulse Oximetry 99 99 100 Oxygen Delivery Nasal Cannula Oxygen Flow Rate 2 08/23/23 18:02 08/23/23 19:02 08/23/23 23:02
== END 2023-08-24 15:30 | disposition home or self-care (01) ==
LOC: ANHSURGERY 09:43 → ANH3MEDSUR 17:20
PROVIDERS: PCP Internal Medicine; Visit Provider Orthopaedic Surgery
PROC: (CPT 27447; principal; 2023-08-23 12:00)
PROC: (CPT 27447; 2023-08-23 12:00)
DX: M17.0 Bilateral primary osteoarthritis of knee (principal); I25.10 Atherosclerotic heart disease of native coronary artery without angina pectoris; K21.9 Gastro-esophageal reflux disease without esophagitis; J43.9 Emphysema, unspecified; Z86.73 Personal history of transient ischemic attack (TIA), and cerebral infarction without residual deficits; Z95.5 Presence of coronary angioplasty implant and graft; Z87.891 Personal history of nicotine dependence; Z79.51 Long term (current) use of inhaled steroids; Z79.82 Long term (current) use of aspirin; E66.9 Obesity, unspecified; Z68.38 Body mass index [BMI] 38.0-38.9, adult
CPT/HCPCS: 27447; 20610; 36415; 73560; 80048; 80307; 82040; 83036; 85025; 86850; 86900; 86901; 87081; 93005; 94640; 97110; 97116; 97161; 97165; A9270; C1713; C1776; J0171; J0690; J1040; J1100; J1170; J1885; J2270; J2405; J2704; J2795; J3010; J3370; J7120

== ENCOUNTER 2024-08-04 05:00 | Emergency (ER) | payer MEDICARE, MEDICAID, SELFPAY ==
[2024-08-04 05:03] VITALS: BP 161/98; PULSE 90; RESP 14; TEMP 36.2; O2SAT 98
--- NOTE | 2024-08-04 06:25 | PC.NURSE ---
Patient visitor to desk stating do you guys even have a doctor here? we've been waiting for [address] Lundberg identified himself and said he would be in to see the patient when he could and that there was just an large influx of patients into the department. Patient visitor [place] . Patient ambulatory with cane out of department with visitor. Patient in no obvious distress.
== END 2024-08-04 06:52 | disposition left against medical advice (07) ==
LOC: ANHED 06:38
PROVIDERS: PCP Internal Medicine
DX: M54.9 Dorsalgia, unspecified (principal)
CPT/HCPCS: 99199